=== PATIENT | female | born 1980 | race Caucasian/White ===

== ENCOUNTER 2017-06-29 16:03 | Emergency (ER) | payer OTHER ==
[~2017-06-29] VITALS: Ht 160 cm; Wt 138.3 kg
[2017-06-29 16:22] VITALS: BP 151/73
[2017-06-29 17:12] LABS: BASOPHILS # (AUTO) 0.2 K/uL (0.00-0.22); BASOPHILS % (AUTO) 1.7 % (0.0-2.0); EOSINOPHILS # (AUTO) 0.2 K/uL (0-0.4); EOSINOPHILS % (AUTO) 1.5 % (0.0-4.0); HEMATOCRIT 39.4 % (36-48); HEMOGLOBIN 12.8 g/dL (12.0-16.0); LYMPHOCYTES # (AUTO) 2.5 K/uL (2.5-16.5); MEAN CORPUSCULAR HEMOGLOBIN 29 pg (27-31); MEAN CORPUSCULAR HGB CONC 33 g/dL (33-37); MEAN CORPUSCULAR VOLUME 88 fL (80-94); MONOCYTES # (AUTO) 0.9 K/uL (0.8-1.0); MONOCYTES % (AUTO) 7.9 % (1.7-9.3); NEUTROPHILS # (AUTO) 8.2 K/uL (1.8-7.7); NEUTROPHILS % (AUTO) 67.9 % (42.2-75.2); PLATELET COUNT (AUTO) 366 K/uL (140-450); RED BLOOD CELL COUNT(AUTO) 4.46 MIL/uL (4.20-5.40); RED CELL DISTRIBUTION WIDTH 13.4 % (11.6-13.7)
[2017-06-29 17:21] LABS: ANION GAP 10.8 (8-16); CREATININE 0.8 mg/dL (0.6-1.3); POTASSIUM 3.8 mmol/L (3.5-5.1)
[2017-06-29 17:31] LABS: ALBUMIN 3.3 g/dL (3.4-5.0); TOTAL BILIRUBIN 0.2 mg/dL (0.0-1.0)
--- NOTE | 2017-06-29 18:55 | NUR ---
Patient to bed 07.
--- NOTE | 2017-06-29 19:11 | NUR ---
36 Y/O F W/C/O ABNORMAL VAGINAL BLEEDING. PT STATES HER LMP STARTED 06/08/17, AND IT NEVER STOPPED. SHE ALSO STATES SHE SEEN HER PCP AND WAS REFERRED TO ER. HX 2011, PER PT SHE IS AWATING FOR A D/AND C. ER MD MADE AWARE.
--- NOTE | 2017-06-29 19:15 | NUR ---
Dr. Emanuel evaluating patient at bedside.
[2017-06-29] MEDS ORDERED: oxyCODONE/APAP 5/325 MG 1 TAB TAB PO ONE (19:25)
[2017-06-29] MEDS ORDERED: KETOROLAC 60 MG/2 ML VIAL IM ONE (19:25)
[2017-06-29 20:43] VITALS: BP 115/83
--- NOTE | 2017-06-29 20:43 | NUR ---
Patient discharged with v/s stable. Written and verbal after care instructions given and explained. Patient alert, oriented and verbalized understanding of instructions. Ambulatory with steady gait. All questions addressed prior to discharge. ID band removed. Patient advised to follow up with PMD. Rx of ORTHO-NOVUM, NAPROSYN AND NORCO given. Patient educated on indication of medication including possible reaction and side effects. Opportunity to ask questions provided and answered.
== END 2017-06-29 20:43 | disposition home or self-care (01) ==
LOC: MED 16:03
DX: N93.8 Other specified abnormal uterine and vaginal bleeding (principal)
CPT/HCPCS: 36415; 80053; 85025; 96372; 99284; G0482; J1885

== ENCOUNTER 2017-07-04 12:35 | Day surgery (SDC) | payer OTHER ==
[2017-07-04] VITALS (9 sets, daily range): BP systolic 109–125; BP diastolic 48–76
[~2017-07-04] VITALS: Ht 160 cm; Wt 141.1 kg
--- NOTE | 2017-07-04 13:55 | NUR ---
34/F BIB SELF C/O BLEDDING PER VAGINA; REDNESS & CLOT BLOOD & CRAMPING PAIN UPPER THIGH BL RADIATES TO UPPER KNEE BL X 26 DAYS. DENIES N/V/D; SKIN IS PINK/WARM/DRY; AAOX4 WITH EVEN AND STEADY GAIT; LUNGS CLEAR BL; PATIENT POSITIONED FOR COMFORT; HOB ELEVATED; BEDRAILS UP X2; BED DOWN. ER MD MADE AWARE OF PT STATUS.
--- NOTE | 2017-07-04 13:58 | NUR ---
Patient being evaluated by DR LAWRENCE at bedside. Addendum: 07/04/17 at 1604 by [email or web address] PT STS USED 6 PADS FOR VAG BLEEDING X TODAY. LAST MEAL PT ATE SALAD AT 12.30 TODAY.
[2017-07-04] MEDS ORDERED: NACL 0.9% 500 ML IV ONE (14:05)
[2017-07-04] MEDS ORDERED: KETOROLAC 30 MG/ML VIAL IVP ONE (14:05)
--- NOTE | 2017-07-04 14:10 | NUR ---
US AT BEDSIDE.
[2017-07-04 14:39] LABS: BILIRUBIN,URINE NEGATIVE (NEGATIVE); BLOOD, URINE 3+ (NEGATIVE); LEUKOCYTE ESTERASE ,URINE TRACE (NEGATIVE); NITRITE, URINE NEGATIVE (NEGATIVE); UGLUCOSE NEGATIVE (NEGATIVE)
[2017-07-04 14:41] LABS: APPEARANCE,URINE BLOODY (CLEAR); COLOR,URINE RED (YELLOW)
[2017-07-04 14:42] LABS: RBC,URINE TOO NUMEROUS TO COUN /HPF (0-5); WBC,URINE NONE SEEN /HPF (0-5)
[2017-07-04 14:50] LABS: PROTHROMBIN TIME 9.4 secs (10.8-13.4)
[2017-07-04 14:55] LABS: BASOPHILS # (AUTO) 0.2 K/uL (0.00-0.22); BASOPHILS % (AUTO) 1.6 % (0.0-2.0); EOSINOPHILS # (AUTO) 0.1 K/uL (0-0.4); HEMOGLOBIN 10.8 g/dL (12.0-16.0); LYMPHOCYTES # (AUTO) 2.1 K/uL (2.5-16.5); LYMPHOCYTES % (AUTO) 15.2 % (20.5-51.1); MEAN CORPUSCULAR HEMOGLOBIN 28 pg (27-31); MEAN CORPUSCULAR HGB CONC 32 g/dL (33-37); MEAN CORPUSCULAR VOLUME 89 fL (80-94); MONOCYTES # (AUTO) 1.1 K/uL (0.8-1.0); MONOCYTES % (AUTO) 7.7 % (1.7-9.3); NEUTROPHILS # (AUTO) 10.4 K/uL (1.8-7.7); NEUTROPHILS % (AUTO) 74.5 % (42.2-75.2); PLATELET COUNT (AUTO) 354 K/uL (140-450); RED BLOOD CELL COUNT(AUTO) 3.83 MIL/uL (4.20-5.40); RED CELL DISTRIBUTION WIDTH 13.2 % (11.6-13.7); WHITE BLOOD COUNT (AUTO) 13.9 K/uL (4.8-10.8)
[2017-07-04] MEDS ORDERED: HYDROmorphone PFS 2 MG/ML SYR IM/IVP ONE (15:45)
--- NOTE | 2017-07-04 16:40 | NUR ---
Patient appears to be resting comfortably in bed. Vital Signs within normal limits. Respirations even and unlabored.WILL CONTINUE TO MONITOR.
--- NOTE | 2017-07-04 17:02 | NUR ---
GAVE REPORT TO RN OR.
[2017-07-04] MEDS ORDERED: MIDAZOLAM 2 MG/2 ML VIAL ONE (17:20)
[2017-07-04] MEDS ORDERED: fentaNYL 0.05 MG/ML VIAL ONE (17:21)
[2017-07-04] MEDS ORDERED: IBUPROFEN 800 MG TAB PO PRN (17:30)
[2017-07-04] MEDS ORDERED: ACETAMINOPHEN/CODEINE 300/30MG 1 TAB PO PRN (17:30)
[2017-07-04] MEDS ORDERED: ONDANSETRON 4 MG/2 ML VIAL IVP PRN ×2 (17:30→18:00)
[2017-07-04] MEDS ORDERED: LACTATED RINGERS 2,000 ML IV SCH (17:59)
[2017-07-04] MEDS ORDERED: MEPERIDINE 25 MG/ML SYR IVP PRN (18:00)
[2017-07-04] MEDS ORDERED: HYDROmorphone 1 MG/ML AMP IVP PRN (18:00)
[2017-07-04] MEDS ORDERED: diphenhydrAMINE 50 MG/ML VIAL IVP PRN (18:00)
--- NOTE | 2017-07-04 19:30 | NUR ---
PT BROUGHT IN BY OR NURSE ON HOSPITAL BED. PT HAS BOLUS INFUSING THROUGH A 20 GAUGE ANTECUBITAL IV. PT IS AAOX4, ON ROOM AIR, VITAL SIGNS WITHIN NORMAL LIMITS, SKIN INTACT, MINIMAL AMOUNT OF VAGINAL BLEEDING ON PAD, PT IS S/P D&C WITH SPINAL ANESTHESIA. CAN MOVE RIGHT LEG, BUT NOT LEFT LEG YET. PLAN OF CARE WAS DISCUSSED WITH PT, PT VERBALIZED UNDERSTANDING. PT IN STABLE CONDITION. NO SIGNS OF DISTRESS NOTED. BED IN LOW POSITION, CALL LIGHT WITHIN REACH. WILL CONTINUE TO MONITOR. Addendum: 07/05/17 at 0622 by Meryl Shaffer RN IV INFUSING LR BOLUS ON WIDE OPEN LINE.
--- NOTE | 2017-07-04 20:00 | NUR ---
BOLUS OF LR PT CAME IN WITH ENDED. STARTED NEW ONE RIGHT AWAY BECAUSE SYSTOLIC BLOOD PRESSURE WAS BELOW 120. ACCORDING TO OR NURSE SBP SHOULD BE >100, SO IF SBP< 120 START ANOTHER BOLUS. PT IN STABLE CONDITION, NO SIGNS OF DISTRESS NOTED. BED IN LOW POSITION, CALL LIGHT WITHIN REACH. WILL CONTINUE TO MONITOR.
[2017-07-04] MEDS: MORPHINE SULFATE 4 MG/ML SYR IM/IVP PRN (21:42)
--- NOTE | 2017-07-04 21:45 | NUR ---
MEDICATED PT WITH MORPHINE FOR PAIN. PT TOLERATED WELL. PT IN STABLE CONDITION. NO SIGNS OF DISTRESS NOTED. BED IN LOW POSITION, CALL LIGHT WITHIN REACH. WILL CONTINUE TO MONITOR.
--- NOTE | 2017-07-04 22:45 | NUR ---
PT TRIED TO AMBULATE WITH 2 PERSON ASSIST AND FAILED, PT HAS NOT YET VOIDED OR AMBULATED. VITAL SIGNS HAVE STAYED WITHIN NORMAL LIMITS. PT IN STABLE CONDITION. NO SIGNS OF DISTRESS NOTED. BED IN LOW POSITION, CALL LIGHT WITHIN REACH. WILL CONTINUE TO MONITOR.
--- NOTE | 2017-07-04 22:50 | NUR ---
SPOKE WITH DR Jonelle COLLINS ABOUT PT NOT VOIDING OR AMBULATING. DR Jonelle COLLINS SAID IT WAS OK FOR PT TO STAY UNTIL MORNING.
--- NOTE | 2017-07-05 00:35 | NUR ---
PT ABLE TO AMBULATE WITH A STEADY GAIT. CHANGED PAD AND AGAIN, ONLY MINIMUM AMOUNT OF VEGINAL BLEEDING. PT IN STABLE CONDITION. NO SIGNS OF DISTRESS NOTED. BED IN LOW POSITION, CALL LIGHT WITHIN REACH. WILL CONTINUE TO MONITOR.
--- NOTE | 2017-07-05 01:16 | NUR ---
PT C/O PAIN AT IV SITE, REQUESTED FOR ANOTHER ONE TO BE STARTED. NEW 20G IV TO LEFT WRIST WAS STARTED. PT AMBULATING WITH STEADY GAIT. PT IN STABLE CONDITION. NO SIGNS OF DISTRESS NOTED. BED IN LOW POSITION, CALL LIGHT WITHIN REACH. WILL CONTINUE TO MONITOR.
[2017-07-05] MEDS: MORPHINE SULFATE 4 MG/ML SYR IM/IVP PRN (03:40)
--- NOTE | 2017-07-05 03:40 | NUR ---
ADMINISTERED MORPHINE TO PT FOR C/O 04/11 PAIN. PT TOLERATED WELL. PT IN STABLE CONDITION, NO SIGNS OF DISTRESS NOTED. BED IN LOW POSITION, CALL LIGHT WITHIN REACH. WILL CONTINUE TO MONITOR.
[2017-07-05 04:00] VITALS: BP 125/68
--- NOTE | 2017-07-05 05:45 | NUR ---
PT ASLEEP, IN STABLE CONDITION, NO SIGNS OF DISTRESS NOTED. BED IN LOW POSITION, CALL LIGHT WITHIN REACH. WILL CONTINUE TO MONITOR.
--- NOTE | 2017-07-05 07:36 | NUR ---
ENDORSED PT TO DAY SHIFT RN. PT IS IN STABLE CONDITION.
--- NOTE | 2017-07-05 07:38 | NUR ---
RECEIVED REPORT FROM NIGHT NURSE, PT IS AAOX4 ON ROOM AIR, IV TO LEFT WRIST 20G SALINE LOCK, PATENT INTACT, SKIN INTACT, INITIAL ASSESSMENT COMPLETED, REVIEWED DISCHARGE PLAN WITH PT, PT VERBALIZED UNDERSTANDING ALL SAFETY PRECAUTIONS MET, CALL LIGHT WITHIN REACH, WILL CONTINUE TO MONITOR.
[2017-07-05 08:00] VITALS: BP 137/76
--- NOTE | 2017-07-05 08:10 | NUR ---
PT SIGNED ALL DISCHARGE PAPERWORK, FOLLOW UP INFORMATION GIVEN, DISCHARGE EDUCATION GIVEN, ALL PERSONAL BELONGINGS WITH PT, IV REMOVED TIP INTACT,
--- NOTE | 2017-07-05 08:20 | NUR ---
PT WAS WALKED OUT TO FRONT LOBBY IN STABLE CONDITION.
== END 2017-07-05 08:20 | disposition home or self-care (01) ==
LOC: MED 12:35 → MDS 16:39 → MTU 16:52 → MDS 07-05 08:20
PROVIDERS: ATTEND Obstetrics & Gynecology
DX: N92.1 Excessive and frequent menstruation with irregular cycle (principal); E66.01 Morbid (severe) obesity due to excess calories; Z68.44 Body mass index [BMI] 60.0-69.9, adult; Z98.890 Other specified postprocedural states; Z79.899 Other long term (current) drug therapy
CPT/HCPCS: 36415; 58120; 76830; 76856; 81001; 84702; 85025; 85610; 85730; 96374; 96375; 99285; J1170; J1885; J2250; J2270; J3010; J7030; J7120; Q0092

== ENCOUNTER 2017-09-09 15:05 | Emergency (ER) | payer OTHER ==
[~2017-09-09] VITALS: Ht 160 cm; Wt 131.5 kg
[2017-09-09 15:06] VITALS: BP 123/75
--- NOTE | 2017-09-09 15:15 | NUR ---
Patient to bed 03.
[2017-09-09 15:36] LABS: BASOPHILS # (AUTO) 0.1 K/uL (0.00-0.22); BASOPHILS % (AUTO) 1.1 % (0.0-2.0); EOSINOPHILS # (AUTO) 0.2 K/uL (0-0.4); EOSINOPHILS % (AUTO) 1.4 % (0.0-4.0); LYMPHOCYTES % (AUTO) 15.1 % (20.5-51.1); MEAN CORPUSCULAR HEMOGLOBIN 26 pg (27-31); MEAN CORPUSCULAR HGB CONC 32 g/dL (33-37); MEAN CORPUSCULAR VOLUME 81 fL (80-94); MONOCYTES # (AUTO) 0.7 K/uL (0.8-1.0); MONOCYTES % (AUTO) 5.3 % (1.7-9.3); NEUTROPHILS # (AUTO) 10.4 K/uL (1.8-7.7); NEUTROPHILS % (AUTO) 77.1 % (42.2-75.2); PLATELET COUNT (AUTO) 380 K/uL (140-450); RED BLOOD CELL COUNT(AUTO) 4.19 MIL/uL (4.20-5.40); RED CELL DISTRIBUTION WIDTH 14.4 % (11.6-13.7); WHITE BLOOD COUNT (AUTO) 13.4 K/uL (4.8-10.8)
--- NOTE | 2017-09-09 16:20 | NUR ---
ER MD DR BOBBY EVALUATING PT AT BEDSIDE
--- NOTE | 2017-09-09 16:25 | NUR ---
PATIENT PRESENTS TO ED WITH C/O VAGINA BLEED x15 DAYS, DENIES N/V/D; SKIN IS PINK/WARM/DRY; AAOX4 WITH EVEN AND STEADY GAIT; LUNGS CLEAR BL; HR EVEN AND REGULAR; PATIENT STATES PAIN OF 3/10 AT THIS TIME; VSS; PATIENT POSITIONED FOR COMFORT; HOB ELEVATED; BEDRAILS UP X2; BED DOWN. ER MD MADE AWARE OF PT STATUS.
[2017-09-09 17:14] VITALS: BP 125/74
== END 2017-09-09 17:14 | disposition home or self-care (01) ==
LOC: MED 15:05
DX: N93.8 Other specified abnormal uterine and vaginal bleeding (principal); N39.0 Urinary tract infection, site not specified
CPT/HCPCS: 36415; 81002; 81025; 85025; 96372; 99283; J1050

== ENCOUNTER 2017-10-15 08:58 | Emergency (ER) | payer OTHER ==
[~2017-10-15] VITALS: Ht 160 cm; Wt 131.6 kg
[2017-10-15 09:15] VITALS: BP 141/76
--- NOTE | 2017-10-15 09:20 | NUR ---
Patient ambulated to bed 10. RN evaluating patient at bedside.
[2017-10-15 09:21] VITALS: BP 141/76
--- NOTE | 2017-10-15 09:27 | NUR ---
37F BIB SELF C/O VAGINAL BLEEDING X 1 MONTH; PT STATES WAS SEEN BY PCP AND TOLD TO COME TO ER FOR PROVERA SHOT. HX: MILD HEART ATTACK 2011 RX: PT DENIES; DENIES N/V/D; SKIN IS PINK/WARM/DRY; AAOX4 WITH EVEN AND STEADY GAIT; LUNGS CLEAR BL; HR EVEN AND REGULAR; PT DENIES ANY FEVER, CP, SOB, OR COUGH AT THIS TIME; PATIENT STATES PAIN OF 10/10 AT THIS TIME; VSS; PATIENT POSITIONED FOR COMFORT; HOB ELEVATED; BEDRAILS UP X2; BED DOWN. ER MD MADE AWARE OF PT STATUS.
[2017-10-15 10:25] LABS: BASOPHILS # (AUTO) 0.2 K/uL (0.00-0.22); BASOPHILS % (AUTO) 1.8 % (0.0-2.0); EOSINOPHILS # (AUTO) 0.1 K/uL (0-0.4); EOSINOPHILS % (AUTO) 1.1 % (0.0-4.0); HEMATOCRIT 33.8 % (36-48); HEMOGLOBIN 10.9 g/dL (12.0-16.0); LYMPHOCYTES # (AUTO) 2.1 K/uL (2.5-16.5); LYMPHOCYTES % (AUTO) 17.8 % (20.5-51.1); MEAN CORPUSCULAR HEMOGLOBIN 25 pg (27-31); MEAN CORPUSCULAR HGB CONC 32 g/dL (33-37); MEAN CORPUSCULAR VOLUME 77 fL (80-94); MONOCYTES % (AUTO) 8.2 % (1.7-9.3); NEUTROPHILS # (AUTO) 8.2 K/uL (1.8-7.7); NEUTROPHILS % (AUTO) 71.1 % (42.2-75.2); PLATELET COUNT (AUTO) 346 K/uL (140-450); RED CELL DISTRIBUTION WIDTH 15.1 % (11.6-13.7); WHITE BLOOD COUNT (AUTO) 11.6 K/uL (4.8-10.8)
[2017-10-15 10:42] LABS: ANION GAP 14.4 (8-16); CARBON DIOXIDE 27.5 mmol/L (21-32); CREATININE 0.7 mg/dL (0.6-1.3); POTASSIUM 3.9 mmol/L (3.5-5.1)
[2017-10-15 10:47] LABS: PROTHROMBIN TIME 10.1 secs (10.8-13.4)
--- NOTE | 2017-10-15 11:14 | NUR ---
PT NOT FOUND IN ER, BRIDGER FOUND IN THE BATHROOM, PT ELELVI, DR CHEN NOTIFIED
== END 2017-10-15 11:14 | disposition left against medical advice (07) ==
LOC: MED 08:58
DX: N93.9 Abnormal uterine and vaginal bleeding, unspecified (principal); I25.2 Old myocardial infarction; F17.200 Nicotine dependence, unspecified, uncomplicated
CPT/HCPCS: 36415; 80048; 85025; 85610; 85730; 86886; 86900; 86901; 99284

== ENCOUNTER 2019-02-13 19:09 | Emergency (ER) | payer SELFPAY ==
[~2019-02-13] VITALS: Ht 160 cm; Wt 122.5 kg
[2019-02-13 19:34] VITALS: BP 122/60
--- NOTE | 2019-02-13 19:37 | NUR ---
TO LOBBY A/W BED, AMBULATORY, VSS
[2019-02-13 19:52] LABS: BASOPHILS # (AUTO) 0.1 K/uL (0.00-0.22); BASOPHILS % (AUTO) 1.3 % (0.0-2.0); EOSINOPHILS # (AUTO) 0.2 K/uL (0-0.4); EOSINOPHILS % (AUTO) 1.6 % (0.0-4.0); HEMATOCRIT 40.5 % (36-48); HEMOGLOBIN 13.3 g/dL (12.0-16.0); LYMPHOCYTES # (AUTO) 2.6 K/uL (2.5-16.5); LYMPHOCYTES % (AUTO) 25.3 % (20.5-51.1); MEAN CORPUSCULAR HEMOGLOBIN 29 pg (27-31); MEAN CORPUSCULAR HGB CONC 33 g/dL (33-37); MEAN CORPUSCULAR VOLUME 88.2 fL (80-94); MONOCYTES # (AUTO) 0.8 K/uL (0.8-1.0); MONOCYTES % (AUTO) 7.9 % (1.7-9.3); NEUTROPHILS # (AUTO) 6.6 K/uL (1.8-7.7); NEUTROPHILS % (AUTO) 63.9 % (42.2-75.2); PLATELET COUNT (AUTO) 352 K/uL (140-450); RED BLOOD CELL COUNT(AUTO) 4.59 MIL/uL (4.20-5.40); RED CELL DISTRIBUTION WIDTH 14.2 % (11.6-13.7); WHITE BLOOD COUNT (AUTO) 10.4 K/uL (4.8-10.8)
[2019-02-13 20:00] LABS: ANION GAP 11.4 (8-16); CARBON DIOXIDE 27.8 mmol/L (21-32); CREATININE 0.9 mg/dL (0.6-1.3); POTASSIUM 3.2 mmol/L (3.5-5.1)
--- NOTE | 2019-02-13 20:12 | NUR ---
PT TAKEN TO BED 9
--- NOTE | 2019-02-13 20:13 | NUR ---
Ultrasound at bedside.
--- NOTE | 2019-02-13 20:20 | NUR ---
38 YO F [place] SELF PRESENTS TO ED C/O VAGINAL BLEEDING ACCOMPANIED BY 8/10 CRAMPING LOWER ABD PAIN THAT COMES AND GOES X 3 WEEKS. PT DENIES . DENIES NVD, URINARY BURNING. PT STATES SHE CHANGES HER PAD EVERY 2 HOURS AND HAS MODERATE TO HEAVY BLEEDING. -- PT APPEARS CALM. ALERT, ORIENTED, COOPERATIVE, BEHAVIOR APPROPRIATE. -- SKIN PINK, WARM, DRY. BREATHING EVEN, UNLABORED. PMH-- IN 2000, LEFT KNEE SX, 2013. Addendum: 02/13/19 at 2051 by [facility] 38 YO F [place] SELF PRESENTS TO ED C/O VAGINAL BLEEDING ACCOMPANIED BY 8/10 CRAMPING LOWER ABD PAIN THAT COMES AND GOES X 3 WEEKS. PT DENIES . DENIES NVD, URINARY BURNING. PT STATES SHE CHANGES HER PAD EVERY 2 HOURS AND HAS MODERATE TO HEAVY BLEEDING. -- PT APPEARS CALM. ALERT, ORIENTED, COOPERATIVE, BEHAVIOR APPROPRIATE. -- SKIN PINK, WARM, DRY. BREATHING EVEN, UNLABORED. PMH-- IN 2000, LEFT KNEE SX, 2013.
--- NOTE | 2019-02-13 20:39 | NUR ---
Dr. Henderson evaluating patient at bedside.
--- NOTE | 2019-02-13 20:47 | NUR ---
US CANCELED. NOT PERFORMED.
[2019-02-13 20:56] VITALS: BP 115/71
--- NOTE | 2019-02-13 20:56 | NUR ---
Patient discharged with v/s stable. Written and verbal after care instructions given and explained. Patient alert, oriented and verbalized understanding of instructions. Ambulatory with steady gait. All questions addressed prior to discharge. ID band removed. Patient advised to follow up with PMD. Rx of Motrin and Provera given. Patient educated on indication of medication including possible reaction and side effects. Opportunity to ask questions provided and answered.
== END 2019-02-13 20:56 | disposition home or self-care (01) ==
LOC: MED 19:09
DX: N93.8 Other specified abnormal uterine and vaginal bleeding (principal); I25.2 Old myocardial infarction
CPT/HCPCS: 36415; 80048; 84702; 85025; 86900; 86901; 99283

== ENCOUNTER 2020-01-01 10:47 | Emergency (ER) | payer OTHER ==
[~2020-01-01] VITALS: Ht 160 cm; Wt 145.8 kg
[2020-01-01 10:49] VITALS: BP 136/62
--- NOTE | 2020-01-01 10:58 | NUR ---
URINE SAMPLE AT BEDSIDE.
--- NOTE | 2020-01-01 11:13 | NUR ---
DR GROSSMAN AT BEDSIDE
[2020-01-01] MEDS ORDERED: KETOROLAC 30 MG/ML VIAL IM ONE (11:15)
[2020-01-01] MEDS ORDERED: HYDROcodone/APAP 5/325 MG 1 TAB TAB PO ONE (11:15)
[2020-01-01] MEDS ORDERED: ONDANSETRON 4 MG ODT PO ONE (11:15)
--- NOTE | 2020-01-01 11:16 | NUR ---
HCG NEGATIVE RESULT
--- NOTE | 2020-01-01 11:16 | NUR ---
PT C/O LEFT LOWER BACK PAIN SINCE YESTERDAY, 07/12 IN SEVERITY WITH FACIAL GRIMACING AND PT RUBBING SITE. PT STATES SHE WAS CLEANING HER HOUSE YESTERDAY WHEN THE PAIN STARTED. PT DENIES UTI S/S OR DYSURIA. TOOK MOTRIN @6AM, NO RELIEF. PMH: SLIP DISC (2018), LEFT KNEE SURGERY (2013) MEDS: NONE NKA
--- NOTE | 2020-01-01 11:26 | NUR ---
toradol, norco, and zofran administered. pt states is driving home
[2020-01-01 12:02] VITALS: BP 134/88
--- NOTE | 2020-01-01 12:02 | NUR ---
Patient discharged with v/s stable. Written and verbal after care instructions given and explained. Patient alert, oriented and verbalized understanding of instructions. Ambulatory with steady gait. All questions addressed prior to discharge. ID band removed. Patient advised to follow up with PMD. Rx of zofran odt/valium/norco given. Patient educated on indication of medication including possible reaction and side effects. Opportunity to ask questions provided and answered.
== END 2020-01-01 12:01 | disposition home or self-care (01) ==
LOC: MED 10:47
DX: M54.5 Low back pain (principal); I25.2 Old myocardial infarction
CPT/HCPCS: 81025; 96372; 99283; J1885; Q0162